=== PATIENT | female | born 1955 | race Caucasian/White ===

== ENCOUNTER → 2023-07-14 12:24 | Outpatient (REF) | payer MEDICARE, OTHER, SELFPAY | LOC: HWRAD 12:24 | PROVIDERS: ATTENDING PHYSICIAN Internal Medicine Critical Care Medicine; FAMILY PHYSICIAN Nurse Practitioner; REFERRING PHYSICIAN Internal Medicine Cardiovascular Disease | DX: J90 Pleural effusion, not elsewhere classified (principal) | CPT/HCPCS: 71046 ==

== ENCOUNTER → 2023-07-23 07:59 | Outpatient (REF) | payer MEDICARE, OTHER, SELFPAY | LOC: DHCBC/DCA 07:59 | PROVIDERS: ATTENDING PHYSICIAN Internal Medicine Cardiovascular Disease; FAMILY PHYSICIAN Nurse Practitioner | DX: I42.8 Other cardiomyopathies (principal); R94.31 Abnormal electrocardiogram [ECG] [EKG] | CPT/HCPCS: 78452; 93017; A9500; J2785 ==

== ENCOUNTER → 2023-08-09 10:27 | Outpatient (REF) | payer MEDICARE, OTHER, SELFPAY | LOC: HWRAD 10:27 | PROVIDERS: ATTENDING PHYSICIAN Internal Medicine Critical Care Medicine; FAMILY PHYSICIAN Nurse Practitioner; REFERRING PHYSICIAN Internal Medicine Cardiovascular Disease | DX: J90 Pleural effusion, not elsewhere classified (principal) | CPT/HCPCS: 71250 ==

== ENCOUNTER 2024-06-06 06:28 | Day surgery (SDC) | payer MEDICARE, OTHER, SELFPAY ==
[2024-05-22 12:42] VITALS: BMI 32.1
--- NOTE | 2024-05-29 15:26 | PTCARENOTE ---
Abnormal bloodwork on 05/22: PTT 40.7, INR 1.58. Jessica at Dr. Briseno's office aware.
[2024-06-06] VITALS (20 sets, daily range): BP systolic 124–159; BP diastolic 60–91; BMI 32.1
[2024-06-06] MEDS: Pyridium 200 MG PO (11:34)
[2024-06-06] MEDS: HEPARIN 5000 UNITS SC (11:34)
[2024-06-06] MEDS: NORMOSOL-R/PLASMALYTE-A 1000 IV ×2 (11:35→20:15)
[2024-06-06 12:10] LABS: Hematocrit 35.1 % (37.0-47.0); Hemoglobin 11.8 g/dL (12.0-16.0)
[2024-06-06 12:32] LABS: Blood Urea Nitrogen 15 mg/dl (7-17); Calcium 9.1 mg/dl (8.4-10.2); Carbon Dioxide 25 mmol/L (22-30); Chloride 102 mmol/L (98-107); Estimated Creatinine Clearance 68 ml/min; Glucose 102 mg/dl (70-99); Potassium 4.2 mmol/L (3.5-5.1); Sodium 138 mmol/L (135-145); eGFR > 60.00
[2024-06-06 12:34] LABS: INR 1.12; PT 14.7 Sec (11.4-14.6)
--- NOTE | 2024-06-06 17:46 | PTCARENOTE ---
Patient admitted from [facility] robotic sacro posterior repair with sling.The patient reports some mild discomfort she rates at a 4 out of 10.Vital signs are stable.All laparoscopic incisions are dry without any drainage.The patient is in her bed
with the call bañuelos in reach.Family is at the bedside.
[2024-06-06] MEDS: FLAGYL 500 MG 100 IV (18:23)
[2024-06-06] MEDS: LOVENOX 40 MG SC (18:29)
[2024-06-06] MEDS: COREG 12.5 MG PO (20:11)
[2024-06-06] MEDS: TYLENOL 650 MG PO (20:36)
[2024-06-06] MEDS: MYLICON 80 MG PO (20:36)
[2024-06-06] MEDS: NORMOSOL-R/PLASMALYTE-A IV (21:24)
[2024-06-06] MEDS: PEPCID 20 MG PO (21:42)
[2024-06-07 03:01] VITALS: BP 134/64
[2024-06-07] MEDS: NORMOSOL-R/PLASMALYTE-A 1000 IV (04:26)
[2024-06-07] MEDS: TYLENOL 650 MG PO (05:22)
[2024-06-07] MEDS: MYLICON 80 MG PO ×2 (05:23→11:37)
[2024-06-07 06:49] LABS: Hematocrit 33.3 % (37.0-47.0); Hemoglobin 11.2 g/dL (12.0-16.0); Mean Corp Hgb Conc. 33.6 g/dL (33.0-37.0); Mean Corpuscular Hgb 31.3 pg (27.0-31.0); Mean Platelet Volume 10.1 fL (7.4-10.4); Platelet Count 210 10^3/uL (130-400); Red Blood Cell Count 3.58 10^6/uL (4.20-5.40); Red Cell Dist. Width 13.2 % (11.5-14.5); White Blood Cell Count 9.9 10^3/uL (4.8-10.8)
[2024-06-07 07:05] VITALS: BP 121/59
[2024-06-07 07:13] LABS: Blood Urea Nitrogen 13 mg/dl (7-17); Estimated Creatinine Clearance 77 ml/min
--- NOTE | 2024-06-07 08:02 | W.PN.GYN ---
Today's Communication / Plan
-
Stop iv fluids, ambulate, followup trial of void
Physician Note
-
S: Patient is a 69yoF currently POD1 s/p robotic sacrocolpopexy, posterior repair and single incision midurethral sling on 06/06/23 admitted overnight for cardiac monitoring. Patient is currently stable. Patient reports she tolerated toast overnight
and has been adequately hydrating. She ambulated to commode this morning after lassiter removal. Incisional pain controlled with tylenol. Reports minimal vaginal bleeding in pad. Denies chest pain, sob, palpitations.
O:
GA: well appearing female in NAD
HEENT: normocephalic, EOMI
Abd: soft, nontender, nondistended, incisions covered with dermabond, no bleeding or discharge noted, no hematoma
: spotting noted in pad, negative suprapubic tenderness, deferred pelvic exam
Ext: negative palpable LE edema
Vital Signs
Temp Pulse Resp BP Pulse Ox
98.1 F 75 18 134/64 96
06/07/24 03:01 06/07/24 03:01 06/07/24 03:01 06/07/24 03:01 06/07/24 03:01
Intake and Output
06/06/24 06/07/24 06/08/24
06:59 06:59 06:59
Intake Total 1740 / 1740
Output Total 1750 / 1750
Balance -10 / -10
Intake:
Oral fluids 240 / 240
IV fluids (Total) 1500 / 1500
Output:
Urine, Lassiter 1750 / 1750
Other:
Number of approximated MODERATE 1
amounts of urine
Laboratory Results
06/07/24 05:31
06/07/24 05:31
A/P
69yoF currently POD1 s/p robotic sacrocolpopexy, posterior repair and single incision midurethral sling on 06/06/23 admitted overnight for cardiac monitoring. Patient is currently stable. Hgb lateral. Lassiter catheter was removed this morning and
patient voided.
1. pelvic organ prolapse/MANSOOR POD1 s/p sacrocolpopexy, posterior repair and single incision midurethral sling
- Followup voiding
- Continue Tylenol prn for pain
- OOB with assistance
- Regular diet
- Continue home medications
- DVT prophylaxis
- Plan to discharge home today (followup in office in two weeks)
2. History of paroxysmal afib; CHF
- Continue monitoring vitals
- Followup recommendations from [facility]
- Restart home Coumadin 06/08 per cardiology
- Restart daily lasix 20mg
- Stop IVF
3. History of chronic constipation
- Restart home colace
- Discussed frequent hydration, consider warm prune juice once discharged
[2024-06-07] MEDS: COREG 12.5 MG PO (09:01)
[2024-06-07] MEDS: COLACE 100 MG PO (09:02)
[2024-06-07] MEDS: LASIX 20 MG PO (09:02)
[2024-06-07] MEDS: PACERONE 200 MG PO (09:02)
--- NOTE | 2024-06-07 09:41 | W.PN.CD ---
Today's Communication / Plan
-
Please see note regarding recommendations regarding Coumadin. Overall patient stable for discharge from cardiology standpoint
Impression / Plan
-
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 Patient with a history of nonischemic cardiomyopathy, VT/ablation, ICD, PAF maintained on amiodarone and Coumadin who was seen preoperatively by Dr. Verdugo and subsequently underwent robotic
colpopexy.
Postop
-Management directed as by Dr. Briseno.
-Resuming anticoagulations when safe from a postop standpoint as per Dr. Briseno Coumadin will be restarted tomorrow.
.
Anticoagulation. Patient maintained on Coumadin for history of PAF
-Maintained in sinus rhythm on amiodarone
-No indication for bridging at this time
-Resume Coumadin as soon as safe from a postoperative standpoint. As per Dr. Briseno will be resumed tomorrow.
-Patient's normal dosing Coumadin 2.5 mg 4 days a week and 1.25 mg 3 days a week
-Patient was instructed to start Coumadin tomorrow 2.5 mg daily through the weekend and then do a fingerstick check at home on Wednesday further directions will be directed by our office.. Patient will likely just then resume previous dosing.
.
Nonischemic cardiomyopathy. Stable euvolemic. Continue current medical therapy long-term management directed by primary roof bolting coal miner. Patient will have additional follow-up with Dr. Verdugo
.
ICD. Stable continue device checks.
.
NSVT. 4 beats on telemetry. Patient with ICD. No additional changes in treatment.
Continue with Coreg and amiodarone
.
PAF. Stable. In sinus rhythm
-Continue amiodarone and resume Coumadin
Physical Exam
Vital Signs/Labs
Vital Signs
Temp Pulse Resp BP Pulse Ox
98.3 F 75 16 121/59 97
06/07/24 07:05 06/07/24 07:05 06/07/24 07:05 06/07/24 09:01 06/07/24 07:05
06/07/24 05:31
06/07/24 05:31
PT 14.7 Sec (11.4-14.6) H 06/06/24 11:58
INR 1.12 06/06/24 11:58
Physical Exam
Constitutional: No acute distress
Cardiovascular: Rhythm & rate is regular
Respiratory: Lungs clear to auscul. and Rhonchi Absent
GI: Soft and Non tender
Neuro/Psych: Alert
Data Reviewed
-
Date of Service: June 07, 2024
Medical Decision Making: Reviewed Test Results
EKG: Other (Reviewed telemetry sinus rhythm 1 4 beat run NSVT)
Medical Tests (PFT, Pathology etc): Report Reviewed by me
Labs: Labs Reviewed by me
--- NOTE | 2024-06-07 10:49 | CM ---
Met with pt at bedside
Pt reports she lives with her in a 2 story home; 3 steps to enter, 12 steps to 2nd fl
Independent at baseline, drives
DME - none
SNF/HH - no past hx
Has ride at d/c
PCP - Cassidy Feldman
[facility]
Plan - anticipate home no needs
[2024-06-07 11:40] VITALS: BP 126/67
== END 2024-06-07 12:35 | disposition home or self-care (01) ==
LOC: SDS 06:28
PROVIDERS: ATTENDING PHYSICIAN Obstetrics & Gynecology; CONSULT PHYSICIAN Internal Medicine Cardiovascular Disease; FAMILY PHYSICIAN Internal Medicine
DX: N99.3 Prolapse of vaginal vault after hysterectomy (principal); N39.3 Stress incontinence (female) (male); Y83.8 Other surgical procedures as the cause of abnormal reaction of the patient, or of later complication, without mention of misadventure at the time of the procedure; N36.41 Hypermobility of urethra
CPT/HCPCS: 57425; 57250; 57288; 80048; 82565; 84520; 85014; 85018; 85027; 85610; C1763; C1771; J1580

== ENCOUNTER → 2024-06-23 12:46 | Outpatient (REF) | payer MEDICARE, OTHER, SELFPAY | LOC: HWRCS 12:46 | PROVIDERS: ATTENDING PHYSICIAN Student in an Organized Health Care Education/Training Program; FAMILY PHYSICIAN Internal Medicine | DX: I47.20 Ventricular tachycardia, unspecified (principal); I50.22 Chronic systolic (congestive) heart failure; I44.7 Left bundle-branch block, unspecified | CPT/HCPCS: 93306 ==